=== PATIENT | female | born 1995 | race Caucasian/White ===

== ENCOUNTER 2024-04-30 15:51 | Outpatient (CLI) | payer OTHER, SELFPAY | END 2024-04-30 15:52 | disposition home or self-care (01) | PROVIDERS: Visit Provider Advanced Practice Midwife | DX: Z34.92 Encounter for supervision of normal pregnancy, unspecified, second trimester (principal); Z3A.24 24 weeks gestation of pregnancy | CPT/HCPCS: 84443; 86703; 86762; 86787; 86850; 86900; 86901; 87491; 87591 ==

== ENCOUNTER 2024-06-02 08:19 | Outpatient (CLI) | payer OTHER, SELFPAY | END 2024-06-02 08:20 | disposition home or self-care (01) | PROVIDERS: Visit Provider Advanced Practice Midwife | DX: Z34.93 Encounter for supervision of normal pregnancy, unspecified, third trimester (principal); Z3A.29 29 weeks gestation of pregnancy | CPT/HCPCS: 86592; 86850; J2791 ==

== ENCOUNTER 2024-07-21 11:49 | Outpatient (CLI) | payer OTHER, SELFPAY | END 2024-07-21 11:50 | disposition home or self-care (01) | LOC: NFLDREF 07-25 22:22 | PROVIDERS: Visit Provider Advanced Practice Midwife | DX: Z34.93 Encounter for supervision of normal pregnancy, unspecified, third trimester (principal); Z3A.35 35 weeks gestation of pregnancy | CPT/HCPCS: 87081; 87653 ==

== ENCOUNTER 2024-07-30 09:17 | Outpatient (CLI) | payer OTHER, SELFPAY ==
[2024-07-30 09:33] VITALS: PULSE 120; O2SAT 100
[2024-07-30 09:38] VITALS: PULSE 114; O2SAT 100
[2024-07-30 09:42] VITALS: RESP 18; TEMP 36.4
[2024-07-30 09:43] VITALS: BP 110/68; PULSE 106
[2024-07-30] MEDS: TERBUTALINE 1 MG/ML INJ 0.25 MG SUBCUT (10:28)
--- NOTE | 2024-07-30 13:00 | PC.OBNST ---
NST Note NST Note Start: 07/30/24 09:26 Freq: ONCE Status: Active Protocol: Document 07/30/24 12:58 ALLEN (Rec: 07/30/24 12:59 ALLEN [id number]) NST Note 1 Para (# of births) 0 EDC 08/19/24 Gestational Age In Weeks & Days 37 Weeks & 1 Days Patient Presented with Complaint(s) of Other Other Complaints Pt. here for a scheduled ECV Reactive Yes Appropriate for Gestational Age Yes TERRENCE Cleaning Date 07/30/24 Reactive Yes Appropriate for Gestational Age Yes TERRENCE Ricci Date 07/30/24 OB NST charge Yes Complete NST Note via Write Note Yes The provider's electronic signature indicates the NST is reactive/appropriate for gestational age. *Note to provider: If an addendum is required, open the patient's chart and click on the note under the Nurse/Allied Health tab.
--- NOTE | 2024-07-30 17:02 | W.PM.OBO ---
OB Outpatient HPI History of Present Illness Date Seen: 07/30/24 History of Present Illness: 28 year old at 37 1/7 weeks gestation presents for external cephalic version. She is a patient of the midwives for care. She has been doing handstands in the pool to encourage the baby to flip. Procedure note: External cephalic version We discussed risks of procedure, including risk of failure, discomfort, placental disruption, rupture of membranes, labor, bradycardia. Consent form was reviewed with and signed by patient. Terbutaline IM was given in preparation for procedure. With bedside ultrasound was performed, revealing fetus in racheal breech presentation with head to maternal left. Fluid was grossly adequate and the neck was flexed. The maternal abdomen was coated with ultrasound gel. The breech was elevated out the pelvis, and a forward roll was instituted. This required only 1 attempt. Fetus is head was brought into the cephalic position and position was confirmed on bedside ultrasound. Patient tolerated procedure with difficulty. Nonstress test before and after the procedure were reactive and reassuring. Meds Home Medications and Allergies Home Medications ?Medication ?Instructions ?Recorded ?Confirmed ?Type cholecalciferol (vitamin D3) 10 10 mcg PO QDAY 04/30/24 07/30/24 History mcg (400 unit) capsule magnesium 200 mg tablet 200 mg PO QDAY 04/30/24 07/30/24 History magnesium glycinate mg PO 04/30/24 07/28/24 History [id number]-[id number] 18 mg-FA 400 tab PO 06/15/24 07/28/24 History mcg-calcium 500 mg-vit K 50 mcg tablet (Women's Multivitamin) omega 1-ikd-oyi-fish oil 120 cap PO 06/30/24 07/28/24 History mg-180 mg-500 mg capsule (Fish Oil) Allergies Allergy/AdvReac Type Severity Reaction Status Date / Time No Known Drug Allergies Allergy Verified 07/28/24 10:49 [facility] Medical History (Updated 07/30/24 @ 17:06 by Wendy Jarrett MD) Heterozygous factor V Leiden mutation ?D68.51 - Activated protein C resistance (ICD-10) Scoliosis ?M41.9 - Scoliosis, unspecified (ICD-10) Esophageal reflux ?K21.9 - Gastro-esophageal reflux disease without esophagitis (ICD-10) Hx of abnormal cervical Pap smear ?Z87.42 - Personal history of other diseases of the female genital tract (ICD-10) Surgical History (Updated 04/30/24 @ 15:23 by Kaela Villasenor CNM) H/O wisdom tooth extraction ?K08.409 - Partial loss of teeth, unspecified cause, unspecified class (ICD-10) Family History (Updated 04/30/24 @ 16:08 by Kaela Villasenor CNM) Mother Factor 5 Leiden mutation, heterozygous Breast lesion Thyroid disease Father Retinal detachment Maternal Grandmother Thyroid disease Myocardial infarction Paternal Grandmother Retinal detachment Rheumatoid arthritis Thyroid disease Maternal Grandfather Macular degeneration Social History (Updated 05/02/24 @ 12:36 by Kaela Villasenor CNM) Narrative: SOCIAL??? Education: masters??? Work: personal coach, stretch specialist ??? Partner: Primitivo work together ??? Lives with: ??? Pets: cats??? Abuse: Denies past/present??? Special Diet: Denies??? Ok with a blood transfusion: yes??? Culture or presybeterian beliefs: denies? RISK FACTORS??? Exercise Times/wk: frequent, teaches classes??? Depression/Anxiety: denies??? MIRACLE: 1 PHQ 9: 0??? Seat Belt Use: Routinely?? Smoking: Denies past/present??? Alcohol/day: Denies while ??? Caffeine: none??? Drug Use: Denies past/present??? MRSA: Denies? What is your current living situation?: I presently have a place to live Problems where you live: no known problems In the past 12 months, utilities in danger of being shut off: no In past 12 months, lack of transportation kept you from medical appts, meetings, work, or getting things needed for daily living: no In the past 12 mos, have been you worried that your food would run out before you had money to buy more?: never true In the past 12 mos, the food you bought just didn't last and you didn't have money to buy more?: never true Smoking Status: Never smoker How often does anyone, including family, friends and others, physically hurt you: never How often does anyone, including family, friends and others, insult or talk down to you: never How often does anyone, including family, friends and others, threaten you with harm: never How often does anyone, including family, friends and others, scream or curse at you: never History History 1 Elective abortions Para 0 Spontaneous abortions Hx # Term Pregnancies Ectopic pregnancies Hx # Pregnancies Multiple births Number of Living Children OB - H&P: Exam Physical Exam Vital signs: Temp Pulse Resp BP Pulse Ox 97.6 F 106 H 18 110/68 100 07/30/24 09:42 07/30/24 09:43 07/30/24 09:42 07/30/24 09:43 07/30/24 09:38 Assessment and Plan Assessment and plan (1) Breech presentation, antepartum: Problem comment: s/p successful ECV Status: Acute Plan as per CNM plan in clinic
== END 2024-07-30 12:30 | disposition home or self-care (01) ==
LOC: OB CLI 09:19 → OB 09:24
PROVIDERS: Visit Provider Obstetrics & Gynecology
DX: O32.1XX0 Maternal care for breech presentation, not applicable or unspecified (principal); Z3A.37 37 weeks gestation of pregnancy
CPT/HCPCS: 36415; 59025; 59412; 76815; 85461; G0463; J2791; J3105

== ENCOUNTER 2024-08-25 19:00 | Inpatient (IN) | payer OTHER, SELFPAY ==
[2024-08-25] VITALS (9 sets, daily range): BP systolic 118–143; BP diastolic 79–89; PULSE 84–104; RESP 14; TEMP 36.5–37.1; O2SAT 99; BMI 25.2
[2024-08-25 18:56] LABS: Amnisure Rom* POSITIVE
--- NOTE | 2024-08-25 19:55 | P.LDBA_ITS ---
Subjective History of Present Illness Date Seen: 08/25/24 Narrative: [place] is being admitted to Labor and Delivery for SROM at 1530 today. She is a 28 year old at 40.6 weeks gestation. Her full history and physical was dictated by Tawanna Villasenor CNM on 08/03/24. Please see this for details. Specific Issues/Plans G1 P 0 Partner: Primitivo? H&P completed by Tawanna Villasenor CNM on 08/03/24? Transfer at 24.1 wks from [facility] * Fruit juice glucose test instead of glucola Can consider growth US if concerned about fundal heights # Factor V heterozygous Consider prophylaxis with risk factors (c/s or obesity), otherwise surveillance is recommended per ACOG Practice Bulletin 197 # Family hx CHD-US normal # Scoliosis Anesthesia consult placed, seen 07/28 # Hep B non-immune # Hx anemia (low ferritin only) # Rh negative Recommend Rhogam at 28 weeks: given 06/02 # Breech at 36.6 Resolved Transfer OB Labs:?(missing labs ordered at transfer visit)?--missing ones were drawn here. ? Blood type: none in documentation Hgb: 13.3??? Platelets: 269??? Rubella: [??]??? Varicella: not in records? RPR: non-reactive??? HBsAg: non-reactive??? Hep C: negative? HIV: not in records??? UC: negative? GC/Chlamydia: not in records??? Pap (07/13/23): NIL, HPV-??? Genetic screening: declines? ? IMAGING:??? 1st trimester: 01/07/24 Single IUP at 8.0 wks with FHR 163. LUZMA 1.4x0.5x0.5cm??? Anatomy scan: 04/15/24 Level 2 Normal anatomy, EFW 81%, anterior placenta, DVP 3.65, Cx 4.42??? TDAP: declined COVID:??declined Flu:???declined 32wk Mental Health:? 34wk hgb:??? Pap: [(Only high-risk abnormal pap in problem list) OB - Problem Based A/P Additional Plan (1) 40 weeks gestation of : Status: Acute (2) Spontaneous rupture of membranes: Status: Acute Plan Assessment:?? at 40.6 weeks gestation?? GBS negative? Patient is coping well with challenges of labor.?? Labor type: Spontaneous, Early labor? Category 2 FHR pattern.? complicated by: * Fruit juice glucose test instead of glucola Can consider growth US if concerned about fundal heights # Factor V heterozygous Consider prophylaxis with risk factors (c/s or obesity), otherwise surveillance is recommended per ACOG Practice Bulletin 197 # Family hx CHD-US normal # Scoliosis Anesthesia consult placed, seen 07/28 # Hep B non-immune # Hx anemia (low ferritin only) # Rh negative Recommend Rhogam at 28 weeks: given 06/02 # Breech at 36.6 Resolved Plan:?? * ?Admit to L & D? * IV access: NA * Monitoring per policy: continuous until reactive NST? * Candidate for analgesia of choice.? Planning nitrous for pain management * Desires waterbirth.? Consent signed and Hep C negative * Expectant management at this time ? * Patient encouraged to reposition and ambulate to promote physiologic labor and . * Anticipate ? Delivery/Labor/Induction Plan Plan: expectant management OB Exam Physical Exam Vital signs: Temp Pulse Resp BP Pulse Ox 98.7 F 100 14 135/89 99 08/25/24 18:28 08/25/24 18:26 08/25/24 18:28 08/25/24 18:26 08/25/24 18:27 Narrative: Vitals Reviewed Constitutional:? Alert and oriented x3 HEENT:? Normocephalic, atraumatic Neck:? Supple Lungs:? Clear to auscultation bilaterally Heart:? Regular rate and rhythm, no murmur, rub or gallop Abdomen:? Soft, nontender, and gravid. Vertex by Raul's, confirmed with cervical exam. Extremities:? No edema or erythema Cervix: 3 cm/75%/-1 station/vertex confirmed by US NST: 150 bpm/moderate variability/+accelerations/variable decelerations/mild contractions Detailed Labor and Delivery Exam Patient Gravid: Yes
[2024-08-26] VITALS (48 sets, daily range): BP systolic 106–152; BP diastolic 63–90; PULSE 90–123; RESP 16; TEMP 36.3–37; O2SAT 99–100
[2024-08-26 05:57] LABS: Hematocrit 41.5 % (33.0-51.0); Hemoglobin* 13.7 gm/dL (12.0-16.0); Mean Corpuscular HGB Conc 33 gm/dL (32-36); Mean Corpuscular Hemoglobin 28 pg (26-34); Mean Corpuscular Volume 84 fL (80-100); Platelet Count* 351 K/uL (140-440); Red Blood Count 4.95 m/uL (4.00-5.20); White Blood Count* 16.33 K/uL (4.50-11.00)
[2024-08-26 05:59] LABS: Slide Review Reflex No
[2024-08-26 06:12] LABS: Blood Urea Nitrogen* 12 mg/dL (5-24); Creatinine* 0.6 mg/dL (0.5-1.5); Est. Creatinine Clearance* 124.49; Estimated Glomerular Filt Rate 125 ml/min
--- NOTE | 2024-08-26 06:12 | PM.OBPNL ---
Documented by User: Carla Galarza 08/26/24 06:45 Subjective Time Seen by Provider: 06:05 Date Seen: 08/26/24 Narrative: Patient is up ad park in room, feeling more uncomfortable with contractions. Met criteria for gestational hypertension, discussed elevated BPs, reason for preE labs drawn, and what process would look like if magnesium would need to be initiated. Will begin continuous monitoring. Plan to continue with expectant management and positioning. Patient agreeable with plan, questions addressed. is at bedside and supportive. Objective Exam: VSS, afebrile General Appearance:? Calm, cooperative. ?No acute distress. ? Psychiatric Exam: Alert and oriented, appropriate affect Abdomen: Gravid, kain Vital Signs: Last Vital Signs Temp 97.7 F 08/26/24 04:25 Pulse 123 H 08/26/24 04:47 Resp 14 08/25/24 18:28 BP 128/63 08/26/24 04:47 Pulse Ox 99 08/26/24 04:51 Pelvic Exam Dilation (cm): 5 Effacement (%): 70 Station: -1 Contractions Monitor mode: None Contraction Frequency: 3 min. Contraction pattern: Regular Contraction intensity: Moderate Assessment Assessment: early labor Station: -1 Amniotic Membrane Status: SROM Status: Category l Heart Rate Baseline: 125 Tracing Comments: Intermittent monitoring, now moving to continuous with gestational hypertension Dx. Plan Plan: ASSESSMENT:?? 28 at 41 weeks 0days gestation?? complicated by:?? * Fruit juice glucose test instead of glucola Can consider growth US if concerned about fundal heights # Factor V heterozygous Consider prophylaxis with risk factors (c/s or obesity), otherwise surveillance is recommended per ACOG Practice Bulletin 197 # Family hx CHD-US normal # Scoliosis Anesthesia consult placed, seen 07/28 # Hep B non-immune # Hx anemia (low ferritin only) # Rh negative Recommend Rhogam at 28 weeks: given 06/02 # Breech at 36.6 Resolved Labor type: Spontaneous, Early labor?? Category 1 FHR pattern.??? Labor complicated by: Gestational hypertension, labs drawn, results WNL GBS negative ?? PLAN:?? 1. Routine intrapartum cares as ordered. Continue with expectant management?? 2. Monitoring per policy, begin continuous due to gestational hypertension 3. Planning unmedicated . Desires water . Consent signed. Hep C negative. Candidate for analgesia of choice.??? 4. Patient encouraged to reposition and ambulate to promote physiologic labor and .?? 6. Anticipate ? Documented by User: Harjinder Abreu CNM 08/26/24 06:45 Objective Exam: VSS, afebrile General Appearance:? Calm, cooperative. ?No acute distress. ? Psychiatric Exam: Alert and oriented, appropriate affect Abdomen: Gravid Plan Plan: ASSESSMENT:?? 28 at 41 weeks 0days gestation?? Labor type: Spontaneous, Early labor?? Category 1 FHR pattern.??? Labor complicated by: Gestational hypertension, labs drawn, no TP ratio due to SROM GBS negative complicated by:?? * Fruit juice glucose test instead of glucola Can consider growth US if concerned about fundal heights # Factor V heterozygous Consider prophylaxis with risk factors (c/s or obesity), otherwise surveillance is recommended per ACOG Practice Bulletin 197 # Family hx CHD-US normal # Scoliosis Anesthesia consult placed, seen 07/28 # Hep B non-immune # Hx anemia (low ferritin only) # Rh negative Recommend Rhogam at 28 weeks: given 06/02 # Breech at 36.6 Resolved ?? PLAN:?? 1. Routine intrapartum cares as ordered. Continue with expectant management?? 2. Monitoring per policy, begin continuous due to gestational hypertension 3. Planning unmedicated . Desires water . Consent signed. Hep C negative. Candidate for analgesia of choice.??? 4. Patient encouraged to reposition and ambulate to promote physiologic labor and .?? 6. Anticipate ?
[2024-08-26 06:13] LABS: Alanine Aminotransferase* 31 U/L (4-35); Aspartate Amino Transferase* 34 U/L (12-35)
[2024-08-26 06:15] LABS: INR 0.87 (0.91-1.10); Prothrombin Time 12.6 Seconds
[2024-08-26 06:16] LABS: Fibrinogen* 454 mg/dL (200-450); Partial Thromboplastin Time* 26 Seconds (23-33)
--- NOTE | 2024-08-26 09:23 | PM.OBPNL ---
Subjective Time Seen by Provider: 08:45 Date Seen: 08/26/24 Narrative: [place] is a 28 yo G1 at 41 0/7 weeks gestation that presented yesterday with PROM of clear fluid at 1530. She is coping well with labor pain. She is supported in labor by her in labor. Specific Issues/Plans G1 P 0 Partner: Primitivo? H&P completed by Tawanna Villasenor CNM on 08/03/24? Transfer at 24.1 wks from [facility] * Fruit juice glucose test instead of glucola Can consider growth US if concerned about fundal heights # Factor V heterozygous Consider prophylaxis with risk factors (c/s or obesity), otherwise surveillance is recommended per ACOG Practice Bulletin 197 # Family hx CHD-US normal # Scoliosis Anesthesia consult placed, seen 07/28 # Hep B non-immune # Hx anemia (low ferritin only) # Rh negative Recommend Rhogam at 28 weeks: given 06/02 # Breech at 36.6 Resolved Objective Exam: Objective: Constitutional: Alert and oriented x3, mild distress, coping well Vital signs stable, see nurse documentation Abdomen: gravid, contractions palpate mild/moderate with contractions and soft between Cervix: 5 cm/75%/-2 station/vertex NST: 125 bpm/moderate variability/15x15 accelerations/no decelerations/contractions every 2-5 minutes Vital Signs: Last Vital Signs Temp 98.6 F 08/26/24 09:03 Pulse 100 08/26/24 09:03 Resp 16 08/26/24 09:03 BP 106/68 08/26/24 09:03 Pulse Ox 99 08/26/24 04:51 Pelvic Exam Dilation (cm): 5 Effacement (%): 70 Station: -1 Contractions Monitor mode: None Contraction pattern: Regular Contraction intensity: Moderate Assessment Station: -1 Amniotic Membrane Status: SROM Status: Category l Heart Rate Baseline: 125 Plan Plan: Plan: ASSESSMENT:?? 28 at 41 weeks 0days gestation?? complicated by:?Fruit juice glucose test instead of glucola, Factor V heterozygous, Family hx CHD-US normal, Scoliosis, Hep B non-immune, Hx anemia (low ferritin only), Rh negative, Breech at 36.6 Resolved Labor complicated by: Gestational hypertension, labs drawn, results WNL GBS negative ?? PLAN:?? 1. Routine intrapartum cares as ordered. Continue with expectant management. We discussed augmentation with pitocin, checking for a forebag and AROM, or continued expectant management. She is progressively getting more uncomfortable. She would like to continue as she is with movement and position changes. She strongly desires to avoid pitocin. Reviewed normal labor progress following PROM. Encourage a balance of position changes or labor warm-up and rest. 2. Monitoring per policy, continue continuous due to gestational hypertension 3. Planning unmedicated . Desires water . Consent signed. Hep C negative. Candidate for analgesia of choice. Waterbirth suite is currently in use, she is aware if it opens up we will try to move her but otherwise we will labor in the bathroom tub as much as possible. ??? 4. Patient encouraged to reposition and ambulate to promote physiologic labor and .?? 6. Anticipate ?
--- NOTE | 2024-08-26 14:16 | P.OBPN_ITS ---
Documented by User: Carla Galarza 08/26/24 14:53 Subjective Time Seen by Provider: 12:30 Date Seen: 08/26/24 Narrative: Patient is up ad park in room, leaning on end of bed, rocking. Reports increased intensity of contractions, breathing well through each one. applying pressure to hips through contractions. Heat pack to lower back offering relief. Reviewed options for labor: continuing with expectant management, SVE, check for forebag. Patient would like a SVE and check for forebag after eating a little and working through contractions a little longer. Discussed pain management, pt desires hydrotherapy and possibly nitrous oxide when ready. She will let us know her timing. Objective Exam: Exam: VSS, afebrile General Appearance:? Calm, cooperative. ?No acute distress. ? Psychiatric Exam: Alert and oriented, appropriate affect Abdomen: Gravid, kain Cardiac: BPs have remained WNL Contractions:2.5-5 min, strong, 60-120 seconds FHR:Baseline 120, accelerations present, moderate variability, no decelerations, caregory 1 Vital Signs: Last Vital Signs Temp 98.1 F 08/26/24 13:02 Pulse 118 H 08/26/24 14:08 Resp 16 08/26/24 13:02 BP 136/83 08/26/24 14:08 Pulse Ox 99 08/26/24 04:51 Contractions Monitor mode: External Contraction pattern: Regular Contraction intensity: Strong/Firm Assessment Assessment: early labor Amniotic Membrane Status: SROM Status: Category l Heart Rate Baseline: 120 Senior Regulatory Affairs Specialist Variability: Moderate (6-25) Monitor Accelerations: Present Monitor Decelerations: None Plan Plan: ASSESSMENT:?? 28 at 41 weeks 0days gestation?? complicated by:?? * Fruit juice glucose test instead of glucola Can consider growth US if concerned about fundal heights # Factor V heterozygous Consider prophylaxis with risk factors (c/s or obesity), otherwise surveillance is recommended per ACOG Practice Bulletin 197 # Family hx CHD-US normal # Scoliosis Anesthesia consult placed, seen 07/28 # Hep B non-immune # Hx anemia (low ferritin only) # Rh negative Recommend Rhogam at 28 weeks: given 06/02 # Breech at 36.6 Resolved Labor type: Spontaneous, Early labor?? Category 1 FHR pattern.??? Labor complicated by: Gestational hypertension, labs drawn, results WNL GBS negative ?? PLAN:?? 1. Routine intrapartum cares as ordered. Continue with expectant management, SVE when pt desires or clinically indicated.? 2. Monitoring per policy, begin continuous due to gestational hypertension. 3. Planning unmedicated . Desires hydrotherapy and water . Consent signed. Hep C negative. Candidate for analgesia of choice.??? 4. Patient encouraged to reposition and ambulate to promote physiologic labor and .?? 6. Anticipate ? Documented by User: Megan Shipley CNM 08/26/24 20:21 Plan Plan: ASSESSMENT:?? 28 at 41 weeks 0days gestation?? complicated by:?? * Fruit juice glucose test instead of glucola Can consider growth US if concerned about fundal heights # Factor V heterozygous Consider prophylaxis with risk factors (c/s or obesity), otherwise surveillance is recommended per ACOG Practice Bulletin 197 # Family hx CHD-US normal # Scoliosis Anesthesia consult placed, seen 07/28 # Hep B non-immune # Hx anemia (low ferritin only) # Rh negative Recommend Rhogam at 28 weeks: given 06/02 # Breech at 36.6 Resolved Labor type: Spontaneous, Early labor?? Category 1 FHR pattern.??? Labor complicated by: Gestational hypertension, labs drawn, results WNL GBS negative ?? PLAN:?? 1. Routine intrapartum cares as ordered. Continue with expectant management, SVE when pt desires or clinically indicated.? 2. Monitoring per policy, begin continuous due to gestational hypertension. 3. Planning unmedicated . Desires hydrotherapy and water . Consent signed. Hep C negative. Candidate for analgesia of choice.??? 4. Patient encouraged to reposition and ambulate to promote physiologic labor and .?? 6. Anticipate ? I,?Megan Shipley APRN, CNM, was present for visit and have reviewed and agree with documentation by the Certified Nurse Midwifery Student.
--- NOTE | 2024-08-26 16:35 | P.OBPN_ITS ---
Documented by User: Carla Galarza 08/26/24 17:32 Subjective Time Seen by Provider: 15:30 Date Seen: 08/26/24 Narrative: Patient working on mat with birthing ball, working well through contractions and breathing deeply, inwardly focused through each one. Has been ambulating mullins, moving about room and repositioning. Reports contractions are increasing in intensity. Desires cervical check (5.5/80/-1). Patient is feeling impatient and frustrated with progress of labor, hoping she would have gotten further after the time and work she has done. Reassurance and education provided. Discussed options moving forward, including continuing with expectant management with movement and rest balance, hydrotherapy in the tub, and initiating Pitocin. Patient Expressed concerns with starting Pitocin, as this was hoping to progress without interventions. Discussed trying some side lying release, hydrotherapy, then rechecking after this and considering Pitocin to encourage progress into active labor. Patient agreeable to this. Objective Exam: Constitutional: Alert and oriented x3, mild distress, coping well Vital signs stable, see nurse documentation Abdomen: gravid, contractions palpate moderate/strong with contractions and soft between Cervix: 5.5 cm/80%/-1 station/vertex, mid, soft FHR: 120 bpm/moderate variability/15x15 accelerations/no decelerations/contractions every 2-5 minutes Vital Signs: Last Vital Signs Temp 98.3 F 08/26/24 16:10 Pulse 108 H 08/26/24 15:27 Resp 16 08/26/24 16:10 BP 128/83 08/26/24 15:27 Pulse Ox 99 08/26/24 04:51 Pelvic Exam Dilation (cm): 5.5 Effacement (%): 80 Station: -1 Contractions Monitor mode: External Contraction Frequency: 1-5 Contraction pattern: Regular Contraction intensity: Strong/Firm Pitocin Rate (mU/min): 7 Assessment Assessment: early labor Station: -1 Amniotic Membrane Status: SROM Status: Category l Heart Rate Baseline: 120 Nursing Home Variability: Moderate (6-25) Monitor Accelerations: Present Monitor Decelerations: None Plan Plan: ASSESSMENT:?? 28 at 41 weeks 0days gestation?? complicated by:?? * Fruit juice glucose test instead of glucola Can consider growth US if concerned about fundal heights # Factor V heterozygous Consider prophylaxis with risk factors (c/s or obesity), otherwise surveillance is recommended per ACOG Practice Bulletin 197 # Family hx CHD-US normal # Scoliosis Anesthesia consult placed, seen 07/28 # Hep B non-immune # Hx anemia (low ferritin only) # Rh negative Recommend Rhogam at 28 weeks: given 06/02 # Breech at 36.6 Resolved Labor type: Spontaneous, Early labor?? Category 1 FHR pattern.??? Labor complicated by: Gestational hypertension, labs drawn, results WNL GBS negative ?? PLAN:?? 1. Routine intrapartum cares as ordered. Continue with expectant management, movement and rest balance. SVE when pt desires or clinically indicated.? 2. Monitoring per policy, continuous due to gestational hypertension. 3. Planning unmedicated . Desires hydrotherapy and water . Consent signed. Hep C negative. Candidate for analgesia of choice.??? 4. Patient encouraged to reposition and ambulate to promote physiologic labor and .?? 6. Anticipate ? Documented by User: Megan Shipley CNM 08/26/24 20:21 Plan Plan: ASSESSMENT:?? 28 at 41 weeks 0days gestation?? complicated by:?? * Fruit juice glucose test instead of glucola Can consider growth US if concerned about fundal heights # Factor V heterozygous Consider prophylaxis with risk factors (c/s or obesity), otherwise surveillance is recommended per ACOG Practice Bulletin 197 # Family hx CHD-US normal # Scoliosis Anesthesia consult placed, seen 07/28 # Hep B non-immune # Hx anemia (low ferritin only) # Rh negative Recommend Rhogam at 28 weeks: given 06/02 # Breech at 36.6 Resolved Labor type: Spontaneous, Early labor?? Category 1 FHR pattern.??? Labor complicated by: Gestational hypertension, labs drawn, results WNL GBS negative ?? PLAN:?? 1. Routine intrapartum cares as ordered. Continue with expectant management, movement and rest balance. SVE when pt desires or clinically indicated.? 2. Monitoring per policy, continuous due to gestational hypertension. 3. Planning unmedicated . Desires hydrotherapy and water . Consent signed. Hep C negative. Candidate for analgesia of choice.??? 4. Patient encouraged to reposition and ambulate to promote physiologic labor and .?? 6. Anticipate ? I,?Megan Shipley APRN, MEGAN, was present for visit and have reviewed and agree with documentation by the Certified Nurse Midwifery Student.
[2024-08-26] MEDS: LACTATED RINGERS 1000 ML 1,000 ML 1200 ML IV ×2 (22:53→23:47)
[2024-08-26] MEDS: ROPIVACAINE 0.2% 100 ml 100 ML 12 MG EPIDURAL (23:40)
[2024-08-26] MEDS: BUPIVACAINE 0.25% PF 10 ML 10 ML ML EPIDURAL (23:41)
--- NOTE | 2024-08-26 23:46 | PM.ANBPRC ---
[facility] Medical History (Updated 08/25/24 @ 20:02 by Harjinder Abreu CNM) Breech presentation, antepartum ?O32.1XX0 - Maternal care for breech presentation, not applicable or unspecified (ICD-10) Heterozygous factor V Leiden mutation ?D68.51 - Activated protein C resistance (ICD-10) Scoliosis ?M41.9 - Scoliosis, unspecified (ICD-10) Esophageal reflux ?K21.9 - Gastro-esophageal reflux disease without esophagitis (ICD-10) Hx of abnormal cervical Pap smear ?Z87.42 - Personal history of other diseases of the female genital tract (ICD-10) Surgical History H/O wisdom tooth extraction ?K08.409 - Partial loss of teeth, unspecified cause, unspecified class (ICD-10) Family History Mother Factor 5 Leiden mutation, heterozygous Breast lesion Thyroid disease Father Retinal detachment Maternal Grandmother Thyroid disease Myocardial infarction Paternal Grandmother Retinal detachment Rheumatoid arthritis Thyroid disease Maternal Grandfather Macular degeneration Social History Narrative: SOCIAL??? Education: masters??? Work: personal driver, stretch specialist ??? Partner: Primitivo work together ??? Lives with: ??? Pets: cats??? Abuse: Denies past/present??? Special Diet: Denies??? Ok with a blood transfusion: yes??? Culture or moravian beliefs: denies? RISK FACTORS??? Exercise Times/wk: frequent, teaches classes??? Depression/Anxiety: denies??? MIRACLE: 1 PHQ 9: 0??? Seat Belt Use: Routinely?? Smoking: Denies past/present??? Alcohol/day: Denies while ??? Caffeine: none??? Drug Use: Denies past/present??? MRSA: Denies? What is your current living situation?: I presently have a place to live Problems where you live: no known problems In the past 12 months, utilities in danger of being shut off: no In past 12 months, lack of transportation kept you from medical appts, meetings, work, or getting things needed for daily living: no In the past 12 mos, have been you worried that your food would run out before you had money to buy more?: never true In the past 12 mos, the food you bought just didn't last and you didn't have money to buy more?: never true Smoking Status: Never smoker How often does anyone, including family, friends and others, physically hurt you: never How often does anyone, including family, friends and others, insult or talk down to you: never How often does anyone, including family, friends and others, threaten you with harm: never How often does anyone, including family, friends and others, scream or curse at you: never Meds Home Medications and Allergies Home Medications ?Medication ?Instructions ?Recorded ?Confirmed ?Type cholecalciferol (vitamin D3) 10 10 mcg PO QDAY 04/30/24 08/25/24 History mcg (400 unit) capsule magnesium 200 mg tablet 200 mg PO QDAY 04/30/24 08/25/24 History magnesium glycinate 200 mg PO DAILY 04/30/24 08/26/24 History dtndwsrs-fsi-gdoc 18 mg-FA 400 1 tab PO DAILY 06/15/24 08/26/24 History mcg-calcium 500 mg-vit K 50 mcg tablet (Women's Multivitamin) omega 3-eiv-ljz-fish oil 120 1 cap PO DAILY 06/30/24 08/26/24 History mg-180 mg-500 mg capsule (Fish Oil) Allergies Allergy/AdvReac Type Severity Reaction Status Date / Time No Known Drug Allergies Allergy Verified 08/25/24 18:24 Results Labs Labs: Laboratory Results - last 24 hr 08/26/24 05:50 WBC 16.33 H RBC 4.95 Hgb 13.7 Hct 41.5 MCV 84 MCH 28 MCHC 33 Plt Count 351 INR 0.87 L APTT 26 Fibrinogen 454 H BUN 12 Creatinine 0.6 Estimated Creat Clear 124.49 Estimated GFR 125 AST 34 ALT 31 Vital Signs Vital Signs: Last Vital Signs Temp 98.3 F 08/26/24 21:40 Pulse 106 H 08/26/24 23:45 Resp 16 08/26/24 16:10 BP 127/74 08/26/24 23:45 Pulse Ox 99 08/26/24 23:45 Weight: 68.946 kg Height: 165.1 cm Anesthesia Procedures Epidural Insertion Patient Location: OB Start Time: 23:10 Stop Time: 23:48 Start Date: 08/26/24 Stop Date: 08/26/24 Reason for Block: procedure for pain Patient Position: sitting Performed By: Harley Mead Preanesthetic Checklist: IV checked, risks and benefits discussed, monitors and equipment checked, pre-op evaluation, timeout performed and anesthesia consent Prep: chlorhexidine gluconate Monitoring: blood pressure monitoring, continuous pulse oximetry and heart rate Approach: midline Vertebral Space: lumbar (1-5) Epidural Technique: RAUDEL saline Needle Type: Tuohy needle Injection Technique: continuous catheter Needle gauge: 17 Needle Length (cm): 10 cm Needle Insertion Depth (cm): 6 Catheter Gauge: 19 Catheter Type: multi-orifice Catheter at skin depth (cm): 12 Test Dose Result: negative and lidocaine 1.5% with epinephrine 1 to 200,000
--- NOTE | 2024-08-26 23:55 | PM.OBPNL ---
Documented by User: Carla Galarza 08/27/24 00:28 Subjective Date Seen: 08/26/24 Narrative: Patient has spent time laboring in the bathroom tub in her labor room. Birthing tub room has opened up and she desires transfer to that room for a water . Transferred rooms, and patient got into birthing tub. Labored in there for about 2.5 hours, repositioning, rocking with contractions, with sacral pressure and hip rocking/massage providing relief. Utilizing nitrous oxide, requiring coaching for focused breathing, and to relax in between contractions. Experiencing excessive back pain and exhaustion, presuming fetus is OP. She is feeling defeated with progress (8 cm) and feels she cannot endure pain much more, considering epidural. Discussed options of remaining in tub with nitrous, moving about room to promote optimal positioning, position in bed with side-lying release to rotate fetus, or plan for epidural. Allowed time for couple to discuss options. Patient thinks she'd like an epidural, OCEANOGRAPHER ASSISTANT in to room to discuss options for medications and different anesthesia types. Agreed upon an epidural without fentanyl. Patient transferred to bed for placement. Procedure went well. Patient able to rest in bed with good pain relief. Desires some rest before another cervical check. Objective Exam: Assessment: active labor Amniotic Membrane Status: SROM Status: Category ll Heart Rate Baseline: 150 Project Manager Variability: Moderate (6-25) Monitor Accelerations: Present Monitor Decelerations: Present Vital Signs: Last Vital Signs Temp 98.3 F 08/26/24 21:40 Pulse 95 08/26/24 23:53 Resp 16 08/26/24 16:10 BP 125/74 08/26/24 23:53 Pulse Ox 99 08/26/24 23:50 Pelvic Exam Dilation (cm): 8 Effacement (%): 80 Station: +1 Contractions Monitor mode: External Contraction Frequency: 1.5-3 min Contraction pattern: Regular Contraction intensity: Strong/Firm Pitocin Rate (mU/min): 0 Assessment Assessment: active labor Station: +1 Amniotic Membrane Status: SROM Status: Category ll Heart Rate Baseline: 150 Project Manager Variability: Moderate (6-25) Monitor Accelerations: Present Monitor Decelerations: Late Plan Plan: ASSESSMENT:?? 28 at 41 weeks 0days gestation?? complicated by:?? * Fruit juice glucose test instead of glucola Can consider growth US if concerned about fundal heights # Factor V heterozygous Consider prophylaxis with risk factors (c/s or obesity), otherwise surveillance is recommended per ACOG Practice Bulletin 197 # Family hx CHD-US normal # Scoliosis Anesthesia consult placed, seen 07/28 # Hep B non-immune # Hx anemia (low ferritin only) # Rh negative Recommend Rhogam at 28 weeks: given 06/02 # Breech at 36.6 Resolved Labor type: Spontaneous, active labor?? Category 2 FHR pattern.??? Labor complicated by: Gestational hypertension, labs drawn, results WNL GBS negative ?? PLAN:?? 1. Routine intrapartum cares as ordered. Continue with expectant management. Reevaluate need for oxytocin after epidural sets up and interval of rest. 2. Monitoring per policy, begin continuous. 3. Epidural for pain management.??? 4. Patient encouraged to rest and reposition to promote physiologic labor and .?? 6. Anticipate ? Documented by User: Megan Shipley CNM 08/27/24 02:33 Plan Plan: ASSESSMENT:?? 28 at 41 weeks 0days gestation?? complicated by:?? * Fruit juice glucose test instead of glucola Can consider growth US if concerned about fundal heights # Factor V heterozygous Consider prophylaxis with risk factors (c/s or obesity), otherwise surveillance is recommended per ACOG Practice Bulletin 197 # Family hx CHD-US normal # Scoliosis Anesthesia consult placed, seen 07/28 # Hep B non-immune # Hx anemia (low ferritin only) # Rh negative Recommend Rhogam at 28 weeks: given 06/02 # Breech at 36.6 Resolved Labor type: Spontaneous, active labor?? Category 2 FHR pattern.??? Labor complicated by: Gestational hypertension, labs drawn, results WNL GBS negative ?? PLAN:?? 1. Routine intrapartum cares as ordered. Continue with expectant management. Reevaluate need for oxytocin after epidural sets up and interval of rest. 2. Monitoring per policy, begin continuous. 3. Epidural for pain management.??? 4. Patient encouraged to rest and reposition to promote physiologic labor and .?? 6. Anticipate ? I,?Megan Shipley APRN, MEGAN, was present for visit and have reviewed and agree with documentation by the Certified Nurse Midwifery Student.
[2024-08-27] VITALS (57 sets, daily range): BP systolic 98–139; BP diastolic 55–80; PULSE 83–139; RESP 16; TEMP 36.5–38.2; O2SAT 96–98
--- NOTE | 2024-08-27 02:33 | PM.OBPNL ---
Subjective Date Seen: 08/27/24 Narrative: [place] is a 28 yo at 41 1/7 weeks gestation that presented on 08/25 with SROM at 1530 of clear fluid. She has made slow progress throughout the day, declining pitocin augmentation but encouraged to move and do labor warm up to help with labor progression. She has had a lot of back pain and was coping well in the tub but feeling very defeated and exhausted. She requested an epidural and has been able to rest for a short period. Discussed recheck of cervix and plan for her to rest. Objective Exam: Objective: Constitutional: Alert and oriented x3, no distress, coping well just exhausted Vital signs stable, see nurse documentation Abdomen: gravid, contractions palpate strong with contractions and soft between Cervix: 9 cm/90%/+1 station/vertex; AROM of forebag NST: 135 bpm/moderate variability/15x15 accelerations/no decelerations/contractions every 1-3 minutes Vital Signs: Last Vital Signs Temp 98.7 F 08/27/24 01:41 Pulse 103 H 08/27/24 02:24 Resp 16 08/26/24 16:10 BP 108/63 08/27/24 02:24 Pulse Ox 98 08/27/24 00:05 Pelvic Exam Dilation (cm): 8 Effacement (%): 80 Station: +1 Contractions Monitor mode: External Contraction pattern: Regular Contraction intensity: Strong/Firm Pitocin Rate (mU/min): 0 Assessment Station: +1 Amniotic Membrane Status: SROM Status: Category ll Heart Rate Baseline: 150 Monitor Accelerations: Present Monitor Decelerations: Late Plan Plan: ASSESSMENT: 28 at 41 weeks 0days gestation?? complicated by:?Fruit juice glucose test instead of glucola, Factor V heterozygous, Family hx CHD-US normal, Scoliosis, Hep B non-immune, Hx anemia (low ferritin only), Rh negative, Breech at 36.6 Resolved Labor type: Spontaneous, active labor?? Category 2 FHR pattern.??? Labor complicated by: Gestational hypertension, labs drawn, results WNL GBS negative ?? PLAN:?? 1. Routine intrapartum cares as ordered. Continue with expectant management. Rupture of forebag with exam of copious clear fluids. Encouraged patient rest and will reassess in 1-2 hours unless pressure or urge to push prior. 2. Monitoring per policy, begin continuous. 3. Epidural for pain management, continue.? 4. Patient encouraged to rest and reposition to promote physiologic labor and .?? 5. GHTN, continue to monitor BP per protocol. 6. Anticipate
--- NOTE | 2024-08-27 05:30 | PM.OBPNL ---
Subjective Date Seen: 08/27/24 Narrative: [place] is a 28 yo at 41 1/7 weeks gestation that presented on 08/25 with SROM at 1530 of clear fluid. She is feeling intermittent rectal pressure but her epidural is dense and working well. She is supported in labor by her . Plan to initiate pushing. Objective Exam: Objective: Constitutional: Alert and oriented x3, no distress, coping well Vital signs stable, see nurse documentation Abdomen: gravid, contractions palpate strong with contractions and soft between Cervix: complete NST: 135 bpm/moderate variability/15x15 accelerations/no decelerations/contractions every 2-4 minutes Vital Signs: Last Vital Signs Temp 98.4 F 08/27/24 04:29 Pulse 103 H 08/27/24 06:57 Resp 16 08/26/24 16:10 BP 98/64 08/27/24 06:57 Pulse Ox 98 08/27/24 00:05 Pelvic Exam Dilation (cm): 100 Effacement (%): 100 Station: +1 Contractions Monitor mode: External Contraction pattern: Regular Contraction intensity: Strong/Firm Pitocin Rate (mU/min): 0 Assessment Station: +1 Amniotic Membrane Status: SROM Status: Category ll Heart Rate Baseline: 145 Monitor Accelerations: Present Monitor Decelerations: Variable Plan Plan: 28 at 41 weeks 0days gestation?? complicated by:?Fruit juice glucose test instead of glucola, Factor V heterozygous, Family hx CHD-US normal, Scoliosis, Hep B non-immune, Hx anemia (low ferritin only), Rh negative, Breech at 36.6 Resolved Labor type: Spontaneous, active labor?? Category 2 FHR pattern.??? Labor complicated by: Gestational hypertension, labs drawn, results WNL; ROM > 36 hours GBS negative VSS ?? PLAN:?? 1. Routine intrapartum cares as ordered. Patient complete, reviewed pushing instructions. 2. Monitoring per policy, begin continuous. 3. Epidural for pain management, continue.? 4. Patient encouraged to rest and reposition to promote physiologic labor and .?? 5. GHTN, continue to monitor BP per protocol. 6. ROM>36 hours, closely monitor vitals and FHR. 7. Anticipate
--- NOTE | 2024-08-27 06:47 | P.OBPN_ITS ---
Subjective Date Seen: 08/27/24 Narrative: [place] is a 28 yo G1 who was admitted for SROM at term. She has declined augmentation and has progressed slowly with baby likely in an OP position. She is complete and has been pushing under epidural anesthesia. Primitivo is here and supportive. VSS, afebrile. Objective Vital Signs: Last Vital Signs Temp 98.4 F 08/27/24 04:29 Pulse 108 H 08/27/24 06:40 Resp 16 08/26/24 16:10 BP 110/58 L 08/27/24 06:40 Pulse Ox 98 08/27/24 00:05 Contractions Monitor mode: External Contraction pattern: Regular Contraction intensity: Strong/Firm Pitocin Rate (mU/min): 0 Assessment Station: +1 Amniotic Membrane Status: SROM Status: Category ll Heart Rate Baseline: 145 Longterm Variability: Moderate (6-25) Monitor Accelerations: Present Monitor Decelerations: Variable
[2024-08-27] MEDS: LACTATED RINGERS 1000 ML 1,000 ML 1200 ML IV (07:30)
[2024-08-27] MEDS: ROPIVACAINE 0.2% 100 ml 100 ML 12 MG EPIDURAL (07:31)
[2024-08-27] MEDS: OXYTOCIN 30 unit/500 ML in NS 30 UNIT/500 ML BAG IVPB (07:36)
--- NOTE | 2024-08-27 09:10 | W.PM.OBVAGDE ---
Documented by User: Carla Galarza 08/27/24 10:04 OB Procedure Vag Delivery Mother Details Mother Details: The patient is a 28 year-old, 1, Para now 1, admitted on 08/25/24 at 40weeks 6 days Days gestation. : 1 Para: 1 Weeks Gestation: 40.6 Admission Date: 08/25/24 Additional Details Amniotic Membrane Status: SROM Amniotic Membrane Rupture Date: 08/25/24 Amniotic Membrane Rupture Time: 15:30 Amniotic Membrane Fluid Description: Clear Analgesia/Anesthesia Type: Epidural and Nitrous Oxide Waterbirth: No Pitcoin: Yes Intrapartal Events: ROM >18 Hours and Prolonged 2nd Stage >2.5 Hrs Labor Onset: 15:00 (08/26/24) Complete: 05:19 (08/27/24) Pushin:31 Heart: heart tones during second stage were Category 2 with pushing efforts, returning to baseline in between. Delivery Details Delivery Date: 08/27/24 Delivery Time: 08:38 Route of delivery: Infant Gender: Female Infant Viability: Alive; Heart Rate Present Position at Delivery: OA Delivery Details: Patient was admitted for SROM from home om 08/25/24 and progressed through a lengthy labor. Patient was active early labor with circuit and intermittent rest. Began active labor in room tub 08/26/24 utilizing nitrous oxide, eventually switching rooms and transitioning to birthing tub. Actively changing positions, eventually desiring epidural anesthesia.Moved to labor bed allowing rest and progression to complete. Forebag noted at 0226, AROM with clear fluid. Patient was complete at 0519 on 08/27/24 and pushing at 0531. of a viable female at 0838 in left tilt position on the bed. Vertex delivered OA, right compound hand. No nuchal cord or shoulder. Body delivered easily and without incident. passed to mothers abdomen with a vigorous cry. Cord was clamped and cut at > 5 minutes. APGARS were 8 at one minute and 8 at five minutes respectively. Mouth was bulb suctioned. Intact placenta with a 3 vessel cord delivered spontaneously at 0853. Fundus firm. 1st identified posterior vaginal laceration, no repair needed and periurethral abrasion. QBL 200 cc. Mother and baby stable; mother plans to breastfeed. weight pending.? 1 Minute Interval Total Score: 8 5 Minute Interval Total Score: 8 Additional Details Shoulder Dystocia: No Placenta Delivery Time: 08:53 Placental Delivery Description: Spontaneous Procedure Done: Global Blood Loss: 200 Laceration: Vaginal - 1st Degree (With periurethral abrasion) Blood Loss Measurement Type: QBL (200) Bakri Used: No Sponge/Need Count Correct: Yes Cord Vessel Description: 3 Vessels Event Summary Status: Mother and infant were stable after delivery. Disposition: floor Documented by User: Natalya Song CNM 08/27/24 10:17 OB Procedure Vag Delivery Mother Details Mother Details: The patient is a 28 year-old, 1, Para now 1, admitted on 08/25/24 at 40weeks 6 days Days gestation after ROM clear fluid 08/25/24 at 1530. Additional Details Delivery augmentation: pitocin Heart: heart tones during second stage were Category 2 Variables occurred with contractions and occasionally were slower to return to baseline with the longer contractions. Moderate variability changed to decreased around 8am, after 2.5 hours of pushing. Discussion with patient and to reconsider pitocin augmentation as the pushing efforts were not quite as strong as needed. [place] was continuing to be fatigued. I wanted to hasten delivery before the baby became more stressed. Pitocin consented and started. It was started at 2 ml/hr and did not need to be increased at any time. Multiple position changes with descent markedly better over the next 1 hour approximately minutes til . Reviewed increased risk for hemorrhage due to prolonged slow labor. Pt consented only to pitocin if needed. Moderate variability returned with large crown, which lasted about 45 min from small to large crown. Tight band at introitus was massaged and stretched. It was apparent that the skin stretching was what was delaying , but with baby's FHTS improved, we stayed the course and continued to progress. Delivery Details Delivery Details: Patient was admitted for SROM from home om 08/25/24 and progressed through a lengthy labor. Patient was active early labor with circuit and intermittent rest. Began active labor in room tub 08/26/24 utilizing nitrous oxide, eventually switching rooms and transitioning to birthing tub. Actively changing positions, eventually desiring epidural anesthesia.Moved to labor bed allowing rest and progression to complete. Forebag noted at 0226, AROM with clear fluid. Patient was complete at 0519 on 08/27/24 and pushing at 0531. See 2nd stage documentation above for more details. of a viable female at 0838 in left tilt position on the bed. Vertex delivered OA, left compound hand. No nuchal cord or shoulder. Body delivered easily and without incident. passed to mothers abdomen with a vigorous cry. Cord was clamped and cut at > 5 minutes. APGARS were 8 at one minute and 8 at five minutes respectively. Mouth was bulb suctioned. Intact placenta with a 3 vessel cord delivered spontaneously at 0853. Fundus firm. 1st identified posterior vaginal laceration, no repair needed and bilateral periurethral abrasions hemostatic and not repaired. QBL 200 cc. Mother and baby stable; mother plans to breastfeed. weight pending.? Additional Details Episiotomy Description: None Cord Vessel Description: 3 Vessels (And left compound hand) Event Summary Status: Mother and infant were stable after delivery. Dagmar Santana APRN, MEGAN, was present for visit and have reviewed and agree with documentation by the Certified Nurse Midwifery Student.? ?
--- NOTE | 2024-08-27 12:06 | PM.OBPNVD1 ---
OB - PN:Subj Subjective Date Seen: 08/27/24 Narrative: [place] is a 28 yo P1001 status post NSVB this morning at 08:38 am after 41 hours of ROM. Delivery was uncomplicated, but first and second stages were protracted. Initial QBL was 200, but the next hour produced almost 300 cc of lochia. Pitocin was encouraged and consented. Shortly after starting the pitocin, some atony was detected by nursing and I was called to bed side. A large clot was dislodged with fundus much more firm after cervical and posterior vaginal sweeps. EBL closer to 750 by noon. Nursing to watch closely. Further, I was notified of an increased maternal temperature of 100.7. Pt has been tachycardic since admit, but the pulse had risen to the 120s. She received a bolus of 400cc when lightheaded trying to get up to bathroom earlier, so another [address] Eldridge notified of increased temp. Recommendation to consider Amp and Gent, one dose each, if needed. I returned to L&D and discussed findings and recommendations with [place]. She seemed to be panicking with tears, fear and hesitation. She is also over tired and has not yet eaten since giving . Reassured that this is not a life threatening situation at this time. Though she is at risk for infection due to the prolonged ROM. Since she has birthed vaginally, we could watch and wait and promote sleep since she is very hesitant to get antibiotics. [place] was able to calm herself and feels good about this plan, but is open to antibiotics if her temperature continues to increase. Sleep strongly encouraged. She agrees with plan and has no further questions at this time. OB - PN: Obj Exam Physical Exam: Vital signs: Temp Pulse Resp BP Pulse Ox 98.4 F 122 H 16 115/72 98 08/27/24 07:01 08/27/24 11:10 08/26/24 16:10 08/27/24 11:10 08/27/24 00:05 OB - PN: A/P Delivery Assessment and Plan (1) (normal spontaneous vaginal delivery): Status: Acute (2) care and examination of lactating mother: Status: Acute (3) Elevated temperature: Status: Acute
[2024-08-27 17:35] LABS: Rapid Plasma Reagin (RPR) Non Reactive (Non Reactive)
--- NOTE | 2024-08-28 00:25 | PM.OBPNVD1 ---
OB - PN:Subj Subjective Date Seen: 08/27/24 Narrative: No further elevations in temps have been noted. Pt agrees to defer the antibiotics at this time unless another elevated temp or other symptoms occur. She felt much better after eating and getting some sleep. She is ambulating independently with no other concerns. OB - PN: Obj Exam Physical Exam: Vital signs: Temp Pulse Resp BP Pulse Ox O2 Del Method 98.7 F 107 H 16 124/69 96 Room Air 08/27/24 20:39 08/27/24 20:39 08/27/24 20:39 08/27/24 20:39 08/27/24 20:39 08/27/24 20:39 OB - PN: Obj Data Labs Labs: Laboratory Results - last 24 hr 08/26/24 05:50 RPR Screen Non Reactive OB - PN: A/P Delivery Assessment and Plan (1) (normal spontaneous vaginal delivery): Status: Acute (2) care and examination of lactating mother: Status: Acute (3) Elevated temperature: Status: Acute
[2024-08-28] MEDS: BENZOCAINE/MENTHOL SPRAY 85 GM AEROSOL 1 APPLIC TOPICAL (01:50)
[2024-08-28 01:52] VITALS: BP 121/82; PULSE 93; RESP 16; TEMP 36.6; O2SAT 98
[2024-08-28 05:21] VITALS: BP 123/78; PULSE 98; RESP 16; TEMP 37; O2SAT 97
[2024-08-28 06:57] LABS: Hemoglobin* 9.5 gm/dL (12.0-16.0)
--- NOTE | 2024-08-28 08:11 | PM.OBPNVD1 ---
OB - PN:Subj Subjective Date Seen: 08/28/24 Patient comments OB post-: no complaints, pain well controlled, tolerating diet and flatus present [place] status: and doing well [place] feeding status: exclusively Narrative: [place] feels well.? Her pain is well controlled with current medications.? She has no new complaints.? Urinary output is adequate and she is voiding without difficulty.? Has a good appetite, is tolerating a general diet, is passing flatus, and has had a bowel movement.? Has small amount of rubra lochia.? She is ambulating well.?She feels is going well overall. Hgb this am is 9.5. Denies feeling lightheaded or dizzy. Will initiate iron supplement today. She desires to stay today and discharge tomorrow. She has been afebrile since the initial elevated temperature and BP WNL. OB - PN: Obj Exam Physical Exam: Vital signs: Temp Pulse Resp BP Pulse Ox O2 Del Method 98.6 F 98 16 123/78 97 Room Air 08/28/24 05:21 08/28/24 05:21 08/28/24 05:21 08/28/24 05:21 08/28/24 05:21 08/28/24 05:21 Narrative: GENERAL APPEARANCE:? normal affect, alert, no distress? MOOD:? appropriate? CHEST:? clear to auscultation and percussion? HEART:? regular rate and rhythm? ABDOMEN:? soft, non-tender the uterine fundus is U/2 and is appropriate for the stage of recovery.? PERINEUM:? mild edema of the perineum, there is a 1st degree laceration that is healing well.? EXTREMITIES:? normal and no edema? OB - PN: Obj Data Labs Labs: Laboratory Results - last 24 hr 08/26/24 08/28/24 05:50 06:38 Hgb 9.5 L RPR Screen Non Reactive OB - PN: A/P Delivery Assessment and Plan (1) (normal spontaneous vaginal delivery): Status: Acute (2) care and examination of lactating mother: Status: Acute (3) Elevated temperature: Status: Acute (4) anemia: Status: Acute Plan day: 1 Plan: routine care Comments: Anticipate discharge home tomorrow.
--- NOTE | 2024-08-28 08:43 | PM.ANPOST ---
Post Anesthesia Note Post Anesthesia Note Patient seen: Inpatient Respiratory Status: adequate Cardiovascular Status: adequate Mental Status: baseline Pain: adequate Temp: baseline Anesthetic awareness: N/A Complications: none Follow care: none
[2024-08-28 09:00] VITALS: BP 128/82; PULSE 96; RESP 16; TEMP 36.8; O2SAT 92
[2024-08-28 13:00] VITALS: BP 126/82; PULSE 104; RESP 16; TEMP 36.6; O2SAT 92
[2024-08-28] MEDS: SODIUM CHLORIDE 0.9 % (FLUSH) 10 ML SYRINGE IVF (13:23)
[2024-08-28 16:47] VITALS: BP 126/81; PULSE 104; RESP 16; TEMP 37.1; O2SAT 92
[2024-08-28 20:38] VITALS: BP 129/81; PULSE 116; RESP 16; TEMP 36.7; O2SAT 98
[2024-08-29 01:12] VITALS: BP 120/83; PULSE 116; RESP 18; TEMP 36.9; O2SAT 98
[2024-08-29 04:45] VITALS: BP 124/85; PULSE 111; RESP 16; TEMP 36.4; O2SAT 98
[2024-08-29 08:11] VITALS: BP 114/72; PULSE 103; RESP 16; TEMP 36.6; O2SAT 98
--- NOTE | 2024-08-29 11:04 | P.DS_ITS ---
DS: Providers Provider Date Seen: 08/29/24 Date of admission: 08/25/24 19:00 Primary care physician: Not a Local Provider Admitting Clinician: Harijnder Abreu CNM Attending Physician on discharge: Harjinder Abreu CNM Date of Discharge: 08/29/24 DS: Diagnosis Discharge Diagnosis (1) anemia: Status: Acute (2) care and examination of lactating mother: Status: Acute (3) (normal spontaneous vaginal delivery): Status: Acute (4) Heterozygous factor V Leiden mutation: Status: Acute Exam Narrative: Exam Narrative: GENERAL APPEARANCE:? normal affect, alert, no distress? MOOD:? appropriate? CHEST:? clear to auscultation and percussion? HEART:? regular rate and rhythm? ABDOMEN:? soft, non-tender the uterine fundus is U/2 and is appropriate for the stage of recovery.? PERINEUM:? mild edema of the perineum, there is a 1st degree laceration that is healing well.? EXTREMITIES:? normal and no edema? Const: Vital Signs, click to edit/add: Vital Signs - 24 hr 08/28/24 13:00 08/28/24 16:47 08/28/24 20:38 Temperature 97.8 F 98.7 F 98.1 F Pulse Rate [Pulse Oximeter] 104 H 104 H 116 H Respiratory Rate 16 16 16 Blood Pressure [Ri ght Arm] 126/82 126/81 129/81 Pulse Oximetry 92 92 98 Oxygen Delivery Me thod Room Air Room Air Room Air 08/29/24 01:12 08/29/24 04:45 08/29/24 08:11 Temperature 98.5 F 97.5 F L 97.8 F Pulse Rate [Pulse Oximeter] 116 H 111 H 103 H Respiratory Rate 18 16 16 Blood Pressure [Ri ght Arm] 120/83 124/85 114/72 Pulse Oximetry 98 98 98 Oxygen Delivery Me thod Room Air Room Air Room Air Documenting provider has reviewed patient's vital signs: yes OB - DS: Summary Hospital Course Hospital Course: The patient is a 28 year old G 1 P 1 at 41.1 weeks gestation that was admitted to the Center on 08/25/24 for spontaneous labor. She had an uncomplicated vaginal delivery. She delivered a viable female . She is [breast/bottle] feeding. the patient has done well. Peripartum Data delivery method: Vaginal Laceration description: Perineal - 1st Degree Episiotomy description: None Infant Gender: Female Infant Discharge Plan: Home Status at Discharge Functional status at discharge: independent ambulation Overall status at discharge: patient is progressing back to baseline Time Spent with Patient Time attestation: Total time spent providing and/or coordinating discharge services: Discharge Plan Discharge Disposition: Home, Self-Care Date of Admission: 08/25/24 19:00 Attending Provider on Discharge: Kaela Villasenor Primary Care Provider: Provider,Not a Local Condition: Stable Anticipated Discharge Date/Time: 08/29/24 12:00 Discharge Medications: New docusate sodium 100 mg Capsule 100 mg PO DAILY Qty: 100 0RF Rx Instructions: Take 1-2 tablets daily as needed for constipation. ferrous sulfate 325 mg (65 mg iron) Tablet 325 mg PO Q48H Qty: 60 0RF ibuprofen 600 mg Tablet 600 mg PO Q6H PRNQty: 60 0RF Continued cholecalciferol (vitamin D3) 10 mcg (400 unit) capsule 10 mcg PO QDAY magnesium glycinate 100 mg magnesium capsule 200 mg PO DAILY magnesium 200 mg tablet 200 mg PO QDAY Women's Multivitamin 18 mg-400 mcg- 500 mg-50 mcg tablet 1 tab PO DAILY Fish Oil 120-180-500 mg capsule 1 cap PO DAILY Discharge Orders: Discharge Order (Routine); Ordered 08/29/24 Ordered By: Kaela Villasenor Patient Education: OB Vaginal/Breast Feeding Additional Instructions: Discharge instructions were reviewed with the patient including signs and symptoms of infection and home going medications.? Lifting Restrictions: 20 pounds for 6? weeks? ?? Do not drive while taking narcotic pain meds.? Off Work or School for 6 weeks.? ?? Symptoms to report to doctor:? -Bleeding that saturates more than one pad per hour? -Passing clots larger than the size of a golf ball? -Pain not relieved by prescribed medication? -Fever above 100.4 degrees Fahrenheit? -A foul vaginal odor? -Difficulty in emotions, mood and functions? -Thoughts of hurting yourself and/or ? -Painful, reddened area in your breast? -Any drainage, redness or tenderness in your IV/epidural site? -Severe headache that doesn't improve after taking medications? -Changes in vision, including temporary loss of vision, blurred vision, and/or light sensitivity? -Upper abdominal pain (usually under ribs on the right side)? -Decrease in urination or painful, frequent urinating? -Chest pain? -Shortness of breath? -Tenderness or pain with redness and/swelling in the calf(s) of y our leg? ?? Follow Up in clinic in 2 and 6 weeks.? ?? consultation services are available to all mothers and babies for the first year after delivery.? To make an appointment, please call [phone].? Activity Level: Activity as Tolerated Discharge Diet: Regular Follow Up Appointments: Provider,Not a Local [Primary Care Provider] - [facility] [Provider Group] Forms: MyHealth Info Instructions
[2024-08-29 14:15] VITALS: BP 127/85; PULSE 114; RESP 16; TEMP 36.7; O2SAT 98
== END 2024-08-29 15:00 | disposition home or self-care (01) | DRG 806 ==
LOC: OB OUT 19:35 → OB 19:35
PROVIDERS: Midwife; Admitting Provider Advanced Practice Midwife; Visit Provider Advanced Practice Midwife
DX: O42.12 Full-term premature rupture of membranes, onset of labor more than 24 hours following rupture (principal); D62 Acute posthemorrhagic anemia; Z37.0 Single live birth; D68.51 Activated protein C resistance; O86.4 Pyrexia of unknown origin following delivery; Z3A.40 40 weeks gestation of pregnancy; O13.4 Gestational [pregnancy-induced] hypertension without significant proteinuria, complicating childbirth; O76 Abnormality in fetal heart rate and rhythm complicating labor and delivery; O63.1 Prolonged second stage (of labor); M41.9 Scoliosis, unspecified; K21.9 Gastro-esophageal reflux disease without esophagitis; Z87.42 Personal history of other diseases of the female genital tract; Z78.9 Other specified health status; O26.893 Other specified pregnancy related conditions, third trimester; Z67.41 Type O blood, Rh negative; O70.0 First degree perineal laceration during delivery; O62.2 Other uterine inertia; O90.81 Anemia of the puerperium; Z86.2 Personal history of diseases of the blood and blood-forming organs and certain disorders involving the immune mechanism
CPT/HCPCS: 01967; 36415; 76815; 82565; 84112; 84450; 84460; 84520; 85018; 85027; 85384; 85461; 85610; 85730; 86592; J0665; J2791; J2795; J7120